=== PATIENT | female | born 1955 | race Caucasian/White ===

== ENCOUNTER 2018-01-13 08:07 | Day surgery (SDC) | payer OTHER ==
[2018-01-13] MEDS ORDERED: SOD CHLORIDE 0.9% 1,000 ML IV (11:30)
[2018-01-13] MEDS ORDERED: CEFAZOLIN 1 GM/50 ML (PMX) 50 ML IVPB (11:30)
[2018-01-13] MEDS ORDERED: MIDAZOLAM 1 MG/ML 2 ML INJ (12:44)
[2018-01-13] MEDS: ISOSULFAN BLUE 1% 5 ML INJ SC (12:56)
[2018-01-13] MEDS ORDERED: HYDROCODONE/APAP (7.5/325) TAB PO (15:30)
[2018-01-13] MEDS ORDERED: HYDROmorphONE 1 MG/5 ML IV SYRINGE IV (15:42)
[2018-01-13] MEDS: HYDROmorphONE 1 MG/5 ML IV SYRINGE IV ×3 (15:44→16:05)
[2018-01-13] MEDS ORDERED: ONDANSETRON 4 MG INJ IV (16:00)
[2018-01-13] MEDS ORDERED: FENTAnyl 50 MCG/ML VIAL IV (16:00)
[2018-01-13] MEDS ORDERED: ROCURONIUM 50 MG INJ ×2 (16:19)
[2018-01-13] MEDS ORDERED: CEFAZOLIN 1 GM INJ (16:19)
[2018-01-13] MEDS ORDERED: PROPOFOL 20 ML (16:19)
[2018-01-13] MEDS ORDERED: DEXAMETHASONE 4 MG/ML 1 ML INJ (16:19)
[2018-01-13] MEDS ORDERED: FENTAnyl 50 MCG/ML VIAL (16:19)
[2018-01-13] MEDS ORDERED: LIDOCAINE 2% (SDV) 5 ML INJ (16:19)
[2018-01-13] MEDS ORDERED: ONDANSETRON 4 MG INJ (16:19)
[2018-01-13] MEDS ORDERED: EPHEDrine SULFATE 50 MG/5 ML SYG (16:19)
== END 2018-01-13 17:25 | disposition home or self-care (01) ==
LOC: SDS 08:07
DX: D05.12 Intraductal carcinoma in situ of left breast (principal); I10 Essential (primary) hypertension; E11.9 Type 2 diabetes mellitus without complications; F17.200 Nicotine dependence, unspecified, uncomplicated
CPT/HCPCS: 19301; 82962; 88307